=== PATIENT | male | born 1975 | race Two or more races ===

== ENCOUNTER 2016-11-25 15:45 | Inpatient (IN) | payer BC ==
[~2016-11-25] VITALS: Ht 170.2 cm; Wt 81.6 kg
[2016-11-25] MEDS ORDERED: Zolpidem 5mg tab ORAL PRN (16:30)
[2016-11-25] MEDS ORDERED: Milk of Magnesia 30ml Ud ORAL PRN (16:30)
[2016-11-25] MEDS ORDERED: Mylanta II UD 30ml ORAL PRN (16:30)
[2016-11-25] MEDS ORDERED: Miralax 17gm pkt ORAL PRN (16:30)
[2016-11-25] MEDS ORDERED: Norco 5mg/325mg tab ORAL PRN (16:30)
[2016-11-25] MEDS ORDERED: Morphine Sulfate 4mg/ml Inj IV PRN (16:30)
--- NOTE | 2016-11-25 16:35 | History & Physical ---
History and Physical History & Physicial Dariel Braga MD Nov 25, 2016 16:35
[2016-11-25] MEDS: metroNIDAZOLE 500mg 100 ML IVPB SCH (19:27)
[2016-11-25] MEDS: D5 1/2NS w/KCl 20mEq 1,000 ML IV SCH (19:27)
[2016-11-25 19:28] VITALS: BP 137/91
--- NOTE | 2016-11-25 19:33 | Consultation ---
Consult Note Consult Note 41 yo M has had intermittent pain for several months in the RUQ but over the last 3 weeks has been more persistent. At 2 am today it got acutely worse and he ended up going to the ED at [facility]. He denies fevers at home but did have chills. Positive for nausea/vomitting. Never in the ED for this before. Denies jaundic. Denies dark urine. They recommended lap mak at [place] but transferred due to insurance concerns. He reports since about 6 pm, the pain has 100% resolved. He feels completely back to normal. PMHx: Denies PSHx: Denies FamHx: Denies Colon CA, Denies HNPCC SocHx: Denies etoh, non smoker ROS: 10 point reviewed - pertinents to history listed above PE: AVSS NAD AAOx3 unlabored no LAD regular soft, NTND Rees's NEGATIVE McBurney's NEGATIVE No rovsing's, no guarding, no tenderness to very deep palpation in all quadrants , no distention Benign abdomen No labs here, however WBC 10.4 at [place] all [place] labs reviwed no imaging available here however ultrasound from [place] reviewed -- GB Wall 5.4 , PCF, Muphy's sign negative Assessment/Plan Chronic Cholecystitis, Biliary Colic No evidence of acute cholecystitis at the moment - completely benign and exam and he feels normal may have had a stone in the neck of the gallbladder that has released given history and findings at [place] - will observe overnight -- if stable can discharge tomorrow with follow up for fast track cholecystectomy if pain returns or other signs of acute on chronic cholecystitis then will do thia admission. KARAN MORRISON Nov 25, 2016 19:33
[2016-11-25] MEDS ORDERED: Tubing IV Secondary IV ONE (21:49)
[2016-11-26] VITALS: BP 113/79
--- NOTE | 2016-11-26 00:09 | History and Physical Report ---
DATE OF ADMISSION: 11/25/2016 CHIEF COMPLAINT: Right-sided abdominal pain. HISTORY OF PRESENT ILLNESS: This is a 41-year-old very delightful gentleman, denies any past medical history and past surgical history, who presented to the hospital initially to [facility], complaining about the right-sided upper quadrant abdominal pain. It has been going on on and off for the past three weeks. He said that it initially started three weeks ago, while he was in a gym. He felt to have had a little pain in the right side of his abdomen and then last night, it got progressively worsening associated with nausea, vomiting, unable to tolerate p.o. intake, and he decided to go to the hospital shortly after initial evaluation at [facility]. The patient was transferred to [facility] for possible right upper quadrant pain, most likely secondary to acute cholecystitis, and subsequently was transferred to the hospital for possible surgical intervention. PAST MEDICAL HISTORY/PAST SURGICAL HISTORY: Denies any past medical and past surgical history except right arm fracture, status post hardware placement. MEDICATIONS: Medications at home are none. ALLERGIES: No known drug allergies. SOCIAL HISTORY: The patient denies any smoking, alcohol, or drugs. He works for a [employer] at [employer]. FAMILY HISTORY: Significant for hypertension and dyslipidemia. REVIEW OF SYSTEMS: Mostly as above. Denies any dysuria, frequency, hematuria, or hematochezia. Denies any hemoptysis or hematemesis. Denies any bright red blood per rectum. Denies any suicidal or homicidal ideation. Denies any loss of consciousness. Complained about nausea and vomiting. Denies any double vision. Denies any bright red blood per rectum. PHYSICAL EXAMINATION: VITAL SIGNS: On admission, the patient's temperature was 98.2 degrees, pulse 66, respirations 17, and blood pressure 113/73. GENERAL: The patient is awake and responsive, in no acute distress. HEENT: Pupils are reactive to light. Extraocular movements are intact. NECK: Supple. No JVD. LUNGS: Good air entry. No wheezing or rales. HEART: S1 and S2. Regular rhythm. No gallops. ABDOMEN: Soft. Mildly obese. Right upper quadrant tenderness and deep palpation. No rebound tenderness. No fluid shift. EXTREMITIES: No cyanosis, clubbing, or edema. NEUROLOGICAL: Cranial nerves II through XII are grossly intact. The patient is moving all four extremities. LABORATORY AND DIAGNOSTIC DATA: On admission from the [facility], the patient had a chest x-ray, no acute cardiopulmonary disease was identified and clear lung. The patient had an ultrasound of the abdomen, Rees sign cannot be evaluated due to the medication. The patient has echogenic liver with nonspecific and may be seen with fatty, cholelithiasis, thickening of gallbladder wall, pericholecystic fluid, and right kidney abscess. The patient's laboratory, WBC is 10.4, hemoglobin 16, hematocrit 46, and platelets 229,000. AST is 37, total bilirubin 0.9, glucose 142, GFR 58, BUN 17, sodium 140, potassium 3.6, chloride 105, and bicarbonate 23. Urinalysis is unremarkable. ALT is 47 and lipase 44, and alkaline phosphatase 75. First troponin is less than 0.02. ASSESSMENT: Right upper quadrant pain, most likely due to the acute cholecystitis. PLAN: Admit the patient to medical/surgical. We will follow up laboratory in the morning. Discussed with Dr. Juan M Zuniga, from the corrective surgery. IV hydration, p.o. pain medication, and broad-spectrum antibiotics. We will follow up with cultures, if need to and Code status is Full Code. DVT prophylaxis. Heparin subcutaneous. Dariel Braga M.D. DR: Trish JOB#: [id number] CC:
[2016-11-26 04:00] VITALS: BP 116/68
[2016-11-26] MEDS: D5 1/2NS w/KCl 20mEq 1,000 ML IV SCH ×2 (06:00→13:00)
[2016-11-26] MEDS: metroNIDAZOLE 500mg 100 ML IVPB SCH (06:05)
[2016-11-26 07:37] LABS: BASOPHILS % (AUTO) 0.5 % (0.0-2.0); EOSINOPHILS % (AUTO) 2.1 % (0.0-3.0); LYMPHOCYTES % (AUTO) 26.5 % (20.0-45.0); MEAN CORPUSCULAR HEMOGLOBIN 29.4 PG (27.0-31.0); MEAN CORPUSCULAR HGB CONC 32.7 G/DL (32.0-36.0); MEAN CORPUSCULAR VOLUME 90 FL (80-99); MEAN PLATELET VOLUME 7.6 FL (6.5-10.1); MONOCYTES % (AUTO) 10.4 % (1.0-10.0); NEUTROPHILS % (AUTO) 60.5 % (45.0-75.0); PLATELET COUNT 259 K/UL (150-450); RED BLOOD COUNT 4.99 M/UL (4.70-6.10); RED CELL DISTRIBUTION WIDTH 12.2 % (11.6-14.8)
[2016-11-26 08:06] VITALS: BP 116/77
[2016-11-26 08:07] LABS: INR 1.1 (0.9-1.1); PROTHROMBIN TIME 11.4 SEC (9.30-11.50)
[2016-11-26 08:15] LABS: ALANINE AMINOTRANSFERASE 41 U/L (3-41); ALBUMIN/GLOBULIN RATIO 1.3 (1.0-2.7); ANION GAP 13 (5-15); ASPARTATE AMINO TRANSFERASE 24 U/L (5-40); CALCIUM 8.8 mg/dL (8.6-10.2); CARBON DIOXIDE 26 mEQ/L (20-30); CHLORIDE 105 mEQ/L (98-107); CREATININE 1.1 mg/dL (0.7-1.2); GLOMERULAR FILTRATION RATE > 60 mL/min (>60); HEMOLYSIS 4; MAGNESIUM 2.1 mg/dL (1.7-2.5); PHOSPHORUS 2.7 mg/dL (2.5-4.8); POTASSIUM 3.8 mEQ/L (3.4-4.9); SODIUM 144 mEQ/L (135-145); TOTAL PROTEIN 6.4 g/dL (6.6-8.7)
--- NOTE | 2016-11-26 09:31 | General Progress Note ---
Progress Note Progress Note Surgery he reports 100% improved. No pain now or overnight. Feels back to "normal" okay with discharge and outpatient follow up wbc 8's AVSS nad benign abdomen max sign negative a/p chronic mak outpatient follow up - elective lap mak please advise if patient not discharged today or if condition changes. KARAN MORRISON Nov 26, 2016 09:31
[2016-11-26 11:48] VITALS: BP 118/75
--- NOTE | 2016-11-26 20:40 | Discharge Summary ---
Discharge Summary Hospital Course Date of Admission Nov 25, 2016 at 15:45 Date of Discharge Admitting Diagnosis HPI Parker Vitale is a 41 year old male who was admitted on Nov 25, 2016 at 15:45 for Cholecystitis Hospital Course Last 24 Hour Vital Signs Date Time Temp Pulse Resp B/P Pulse Ox O2 Delivery O2 Flow Rate FiO2 11/26/16 11:48 97.9 57 20 118/75 99 Room Air 11/26/16 08:06 98.1 57 20 116/77 100 Room Air 11/26/16 04:00 97.5 57 18 116/68 96 Room Air 11/26/16 00:00 98.1 56 18 113/79 98 [id number] Discharge Discharge Disposition Patient was discharged to Home () Discharge Diagnoses: Dariel Braga MD Nov 26, 2016 20:40
--- NOTE | 2016-11-27 05:08 | Discharge Summary ---
DATE OF ADMISSION: 11/25/2016 DATE OF DISCHARGE: 11/26/2016 HISTORY AND HOSPITAL COURSE: This is a 41-year-old very delightful gentleman, who denies any past medical history and past surgical history was only significant for right wrist fracture status post open reduction and internal fixation with hardware placement, who was presented to the hospital initially at [facility] complaining about abdominal pain mostly right quadrant and shortly after initial evaluation, the patient was transferred to [facility] due to the cholecystitis. Throughout the hospital course, the patient was consulted with Dr. Juan M Zuniga. The patient was started on broad-spectrum antibiotic with Levaquin and Flagyl, intravenous hydration and NPO. His status gradually improved and subsequently was tolerated p.o. intake and the patient was discharged home to be follow up as an outpatient with Dr. Zuniga for elective laparoscopic cholecystectomy as outpatient. FINAL DIAGNOSIS: 1. Chronic cholecystitis. 2. Right upper quadrant pain most like secondary to the cholecystitis. MEDICATION ON DISCHARGE: Continue discharge medication list. DIET: Regular diet. ACTIVITY: As tolerated. FOLLOWUP: I advised the patient to follow up with Dr. Juan M Zuniga for outpatient scheduled cholecystectomy. Dariel Braga M.D. DR: NIKIA JOB#: [id number] CC:
== END 2016-11-26 14:00 | disposition home or self-care (01) | DRG 446 ==
LOC: 3E 15:45
DX: K81.1 Chronic cholecystitis (principal)
CPT/HCPCS: 36415; 80053; 83735; 84100; 85025; 85610; 85730